=== PATIENT | female | born 1995 | race Caucasian/White ===

== ENCOUNTER 2024-04-07 10:28 | Inpatient (IN) | payer OTHER ==
[~2024-04-07] VITALS: Ht 162.6 cm; Wt 72.6 kg
[~2024-04-07 10:28] MED LIST: KETO10TA2 PO
--- NOTE | 2024-04-07 10:45 | NUR ---
PTE ALERTA Y ORIENTADA X3 REFIERE VENIR POR DOLOR ABDOMINAL. PTE REFIERE VENIR POR REFERIDO DE DR. ZHU A [place] EN LA VESICULA. SE MIDEN S/V Y SE UBICA.
[2024-04-07] MEDS ORDERED: 0.9 % SODIUM CHLORIDE 500 ML IV ONE (11:00)
[2024-04-07] MEDS ORDERED: PANTOPRAZOLE SODIUM 40 MG/VIAL VIAL IV ONE (11:00)
[2024-04-07] MEDS ORDERED: MEPERIDINE HCL/PF 50 MG/ML VIAL IV ONE (11:00)
[2024-04-07] MEDS ORDERED: ONDANSETRON HCL 2 MG/ML VIAL IV ONE (11:00)
[2024-04-07] MEDS ORDERED: ONDANSETRON HCL 2 MG/ML VIAL ONE ×2 (11:13→21:41)
--- NOTE | 2024-04-07 11:41 | NUR ---
SE RECIBE PTE ALERTA ORIENTADA X3.SE JIGNA MUESTRAS DE [facility] USANDO MEDIDAS ASEPTICAS.SE ADMINISTRAN MEDICAMENT[facility] JOSÉ MIGUEL ORDEN MEDICA.SE ORIENTA PTE SOBRE OBJETIVO DE [place] MEDICO.PTE MANEJADO POR RUBIN.
[2024-04-07 11:55] LABS: HEMATOCRIT 32.9 % (36.0-45.00); HEMOGLOBIN 10.7 g/dL (12.0-15.00); MEAN CELL VOLUME 73.3 fL (80.00-100.00); MEAN CORPUSCULAR HEMOGLOBIN 23.7 pg (27.00-32.0); MEAN CORPUSCULAR HGB CONC 32.4 g/dl (32.0-36.0); PLATELET COUNT 404 K/uL (150-450); RED BLOOD COUNT 4.49 M/uL (4.00-6.00); RED CELL DISTRIBUTION WIDTH 18.8 % (11.5-14.5)
[2024-04-07] MEDS ORDERED: PANTOPRAZOLE SODIUM 40 MG/VIAL VIAL IV SCH (12:08)
[2024-04-07 12:09] LABS: URINE APPEARANCE Cloudy; URINE BILIRRUBIN Negative (NEGATIVE); URINE BLOOD Negative; URINE COLOR Yellow; URINE GLUCOSE Negative (NEGATIVE); URINE LEUKOCYTE Negative; URINE NITRATE Negative; URINE PROTEIN Negative (NEGATIVE)
[2024-04-07 12:10] LABS: URINE BACTERIA 8987.1 uL (0.0-1933); URINE EPITHELIAL CELLS 5.7 uL (0.0-38.8); URINE RBC 18.6 uL (0.0-20.8); URINE WBC 3.3 uL (0.0-23.2)
[2024-04-07] MEDS ORDERED: 0.9 % SODIUM CHLORIDE 1,000 ML IV SCH (12:15)
[2024-04-07] MEDS ORDERED: ONDANSETRON HCL 4 MG in 0.9 % SODIUM CHLORIDE 50 ML IV PRN (12:15)
[2024-04-07] MEDS ORDERED: FLUTICASONE PROPIONATE 50 MCG SPRAY NASAL SCH (12:15)
[2024-04-07] MEDS ORDERED: MORPHINE SULFATE 2 MG/ML CARTRIDGE IV PRN (12:15)
[2024-04-07 12:23] LABS: ALBUMIN 3.6 gm/dL (3.4-5.0); BILIRUBIN TOTAL 0.41 mg/dL (0.3-1.2); CALCIUM 9.1 mg/dL (8.5-10.1); CREATININE SERUM 0.63 mg/dL (0.55-1.02); GFR 110.95; GLOBULINA 4.4 G/DL (2.4-3.5); INR 1.05; PARTIAL THROMBOPLASTIN TIME 29.9 SECONDS (22.0-34.0); POTASSIUM 3.77 mEq/L (3.5-5.1)
[2024-04-07] MEDS ORDERED: CEFAZOLIN SODIUM 1,000 MG VIAL ONE (17:45)
[2024-04-07] MEDS ORDERED: CEFAZOLIN SODIUM 1,000 MG VIAL IV ONE (18:00)
[2024-04-07] MEDS ORDERED: SUGAMMADEX SODIUM 200 MG/2 ML VIAL IV ONE (20:03)
[2024-04-07] MEDS ORDERED: KETOROLAC TROMETHAMINE 30 MG VIAL IM SCH (20:15)
[2024-04-07] MEDS ORDERED: CEFAZOLIN SODIUM 1,000 MG VIAL IV SCH (20:16)
[2024-04-08] MEDS ORDERED: KETOROLAC TROMETHAMINE 30 MG VIAL IM STA (07:25)
== END 2024-04-08 16:32 | disposition home or self-care (01) | DRG 419 ==
LOC: ER 10:28 → SURH 12:33 → SEC-K 12:33 → SURH 12:58
PROVIDERS: General Practice; Surgery; ADMIT Internal Medicine; ATTEND Internal Medicine
PROC: 0FT44ZZ Resection of Gallbladder, Percutaneous Endoscopic Approach (ICD-10-PCS; principal; 2024-04-07 18:15)
DX: K80.10 Calculus of gallbladder with chronic cholecystitis without obstruction (principal); Z20.822 Contact with and (suspected) exposure to COVID-19